=== PATIENT | female | born 1940 | race Caucasian/White ===

== ENCOUNTER → 2016-08-13 | Outpatient (CLI) | payer BC ==
[~2016-08-13] MED LIST: ABRI IV; AMIO200T7 PO; AMOXICILLIN PO; ANAS1TAB19 PO; ATOR10TA88 PO; CALC500C70 PO; CHOL20009 PO; FENO145T26 PO; HYDR-5688 PO; LNX125 PO; LPR25 PO; MAGN400T6 PO; METO50TA16 PO; MUCINEX PO; MULT-506 PO; POTA1TAB97 PO; RIVA1TAB4 PO; SOTA160T PO; TEMA15CA4 PO; TESSALON PERLES PO; TRIA37.5 PO; [UNRECOGNIZED DRUG - OTHER] PO
[2016-08-13 12:31] LABS: ZZInitiateTest Complete
[2016-08-13 12:32] LABS: ESTIMATED AVERAGE GLUCOSE 134 mg/dl; HA1C FLAG Normal (Normal)
[2016-08-13 12:36] LABS: MANUAL MICROSCOPIC REQUIRED? NO; REVIEW REQ? YES
== END | disposition home or self-care (01) ==
LOC: C.LABPVFM 08:03
PROVIDERS: ATTEND Family Medicine
DX: I10 Essential (primary) hypertension (principal); E78.5 Hyperlipidemia, unspecified; E11.9 Type 2 diabetes mellitus without complications; R20.8 Other disturbances of skin sensation; R30.0 Dysuria

== ENCOUNTER → 2016-08-22 | Outpatient (CLI) | payer BC | END | disposition home or self-care (01) | LOC: C.LABPVFM 08:20 | PROVIDERS: ATTEND Family Medicine | DX: I48.0 Paroxysmal atrial fibrillation (principal) ==

== ENCOUNTER → 2016-11-13 | Outpatient (CLI) | payer BC ==
[~2016-11-13] MED LIST changes: +ATOR10TA82 PO; -ATOR10TA88 PO
--- NOTE | 2016-11-13 16:09 | MAMMOGRAPHY REPORT ---
BILATERAL DIGITAL SCREENING MAMMOGRAM TOMOSYNTHESIS WITH CAD: 11/13/2016 CLINICAL HISTORY: Asymptomatic. Personal history of breast cancer. TECHNIQUE: Breast tomosynthesis in addition to standard 2D mammography was performed. Current study was also evaluated with a Computer Aided Detection (CAD) system. COMPARISON: Comparison is made to exams dated: 11/15/2015 mammogram, 10/03/2014 mammogram, 10/03/2014 ultrasound, 09/27/2014 mammogram, 09/20/2013 mammogram - [facility], and 06/30/2012 m ammogram. BREAST COMPOSITION: The tissue of both breasts is heterogeneously dense, which may obscure small ma sses. FINDINGS: No suspicious masses, calcifications, or areas of architectural distortion are noted in e ither breast. There has been no significant interval change compared to prior exams. Scattered bilat eral benign-appearing calcifications are not significantly changed. There are stable postsurgical c hanges in bilateral upper outer quadrants, with linear scar markers denoting scars on bilateral uppe r outer breasts. IMPRESSION: ACR BI-RADS CATEGORY 2: BENIGN There is no mammographic evidence of malignancy. A 1 year screening mammogram is recommended. The p atient will receive written notification of the results. Approximately 10% of breast cancers are not detected with mammography. A negative mammographic repor t should not delay biopsy if a clinically suggestive mass is present. Julee Cheatham M.D. /:11/13/2016 15:10:46 Test Engineering Technician: Tatiana MAURICIO(R)(M), [facility] letter sent: Normal 1/2 BI-RADS Code: ACR BI-RADS Category 2: Benign
== END | disposition home or self-care (01) ==
LOC: C.MAMM 14:03
PROVIDERS: ATTEND Surgery
DX: Z12.31 Encounter for screening mammogram for malignant neoplasm of breast (principal); Z85.3 Personal history of malignant neoplasm of breast

== ENCOUNTER → 2016-11-18 | Outpatient (CLI) | payer BC ==
--- NOTE | 2016-11-18 09:44 | DIAGNOSTIC IMAGING REPORT ---
PET/CT SKULL-THIGH CLINICAL HISTORY: BREAST CANCER new mediastinal lymphadenopathy. COMPARISON STUDY: No previous studies for comparison. FINDINGS: The patient was injected with 13.7 mCi of F 18 labeled FDG. Following the standard induction phase, PET/CT scanning is performed from the skull base the upper thigh region. Activity within neck is felt to be physiologic. Within the chest, there is an FDG avid right hilar lymph node which measures approximately 2 cm. This node has SUV maximum of 4.1. Also evident is a mildly FDG avid 15 mm right axillary lymph node with SUV maximum of 2.0. Paratracheal lymph nodes are the upper limits of normal in size but do not demonstrate significant FDG activity. There is no pathologic parenchymal activity. There is no pathologic venkat activity within the abdomen or pelvis. There is no pathologic adrenal gland activity. There is no pathologic hepatic activity. There is physiologic ureter tract and bowel activity. There are bilateral renal cysts, the largest of which measures 4 cm.. There is no pathologic skeletal activity. IMPRESSION: 1. FDG avid 2 cm right hilar lymph node with SUV maximum of 4.1. 2. Minimally FDG avid right axillary lymph node with SUV maximum of 2.0. Electronically signed by: Dayo Bolivar M.D. 11/18/2016 9:43 AM Dictated Date/Time: 11/18/2016 9:36 AM
== END | disposition home or self-care (01) ==
LOC: C.PET 07:24
PROVIDERS: ATTEND Internal Medicine Pulmonary Disease
DX: C50.919 Malignant neoplasm of unspecified site of unspecified female breast (principal)

== ENCOUNTER → 2016-12-20 | Outpatient (CLI) | payer BC ==
[~2016-12-20] MED LIST changes: -AMOXICILLIN PO; -ATOR10TA82 PO; -LNX125 PO; -LPR25 PO; -MUCINEX PO; -SOTA160T PO; -TEMA15CA4 PO; -TESSALON PERLES PO; -[UNRECOGNIZED DRUG - OTHER] PO
--- NOTE | 2016-12-21 06:12 | PAP/PSG TECHNICIAN REPORT ---
[facility] Automotive Service Director Polysomnogram Report Study name: None Report date: 12/21/2016 Study date: 12/20/2016 Referring Physician: CHAPINCITO ALVA DO, DO Name: KRYSTINA MAHAJAN Interpreting Physician: Chapincito Alva D.O. Date of : 1940 Automotive Service Director: OFE Rayo. Sex: Female Age: 76 StudyType: PSG Weight: 147 lbs Height: 76 years, Height 5' 6" Neck Circum:14.5inches BMI: 23.72 Medications: Fenofibrate 145mg, Magnesium Oxide 500mg, Calcium 600/Vit D 600-400, Multiple Vitamin, Potassium Chloride Nga ER 20 MEQ, Triamterene -HCTZ 37.5-25mg, Amiodarone HCl 200mg, Metoprolol Tartrate 50mg, Xarelto 20mg, Vit D3 Patient History Study started on room air with no ETCO2 monitoring in room #6. 76 yr old female here tonight for a diagnostic psg. She snores, has atrial fibrillation and insomnia. She wakes up about every two hours to use the restroom. Her neck circ=14.5inches. Parameters Monitored NPSG: E1-M2, E2-M1, Fp1-M2, Fp2-M1, F3-M2, F4-M2, F4-M1, C3-M2, C4-M2, C4-M1, O1-M2, O2-M2, O2-M1, T3-M2, T4-M1, P3-M2, P4-M1, CHIN1, CHIN2, HR, EKG, Legs, PFLOW, SNOR, FLOW, CFLOW, Tidal Volume, THOR, ABDO, SpO2, PLTH, CPRESS, ETCO2 Wave, ETCO2, pH Sleep Architecture Sleep Stages Time at Lights Off 10:08:14 PM STAGES Time (min.) TST (%) Time at Lights On 5:44:14 AM Wake 73.5 -- Total Recording Time (TRT) 455.50 min. N1 18.0 5 Total Sleep Period (TSP) 452.5 min. N2 268.0 70 Total Sleep Time (TST) 382.0min. N3 28.0 7 Awake Time 73.5 min. REM 68.0 18 Wake after Sleep Onset 70.5 min. Sleep Efficiency (SE) 84 % Sleep Onset Latency (GIRISH) 3.5 min. Number of Stage 1 Shifts None Awakenings 11 Stage Changes 77 Number of REM periods 7 REM 68.0 18 REM Latency 78.0 min. NREM 314.0 82 Body Position Analysis Supine Right Left Side Prone Vertical Total Sleep Time (min.) 41.5 204.5 156.0 360.50 0.0 0.0 Total Sleep Time (%) 6% 54% 41% 94 0% N/A% Total Sleep Time REM (min.) 0.0 54.0 14.0 None 0.0 0.0 Total Sleep Time NREM (min.) 21.5 150.5 142.0 None 0.0 0.0 Intermittent Wake (min.) 20.0 40.5 13.0 None 0.0 0.0 Total Sleep Period (%) 8% None None None None None Arousals Myoclonus (PLM) * Events Count Index Events Count Index Spontaneous 18 3 Events Awake (PLMW) 69 56.3 Respiratory 12 1.9 Events Asleep w/ Arousal (PLMA) 29 4.6 PLM 28 5 Events Asleep w/o Arousal (PLMS) 259 40.7 Snoring 5 1 Total Asleep 288 45.2 Total 63 10 Total 357 47 Respiratory Analysis * CA OA MA CH H RERA Total Count 3 0 0 0 9 4 12 Index 0.5 0.0 0.0 0 1.4 1 2.5 Mean Duration 15.1 0.0 0.0 0.00 22.7 18.4 20.2 Longest Duration 18.0 0.0 0.0 0.00 0.0 32.4 32.4 Respiratory Event Summary Total Supine ~Supine Right Left Prone REM NREM Apneas Count 3 2 1 0 1 N/A 0 3 Index 0.5 6 0 0.0 0.4 N/A 0 1 Hypopneas (4% Desat) Count 9 3 6 0 6 N/A 0 9 Index 1.4 8.4 1 0.0 2.3 N/A 0.0 1.7 Apneas & All Hypopneas Count 12 5 7 0 7 N/A 0 12 Index 1.9 14 1 0 3 N/A 0.0 2.3 Respiratory Events (Produce Department Supervisor+All Hyp+RERA) Count 12 6 10 0 10 N/A 0 12 Index 2.5 17 2 0.0 3.8 N/A 0.0 3.1 Respiratory Related Arousal Count 12 6 7 0 7 N/A 0 12 Index 1.9 14 1 0 3 N/A 0 2 Snoring Analysis Supine Right Left Prone REM NREM Total Snore duration 12.5 min Snores count 14 152 468 N/A 126 508 634 Snore mean duration 1.2 Sec Snores index 39 45 180 N/A 111.2 97.1 99.6 TST with snoring (%) 3.3% Desaturation Event Summary: Minimum %SpO2 Event Count Mean/Min/Max Duration(sec.) Desaturation Index % Time In Bed > 90 24 28.5 / 16.5 / 58.8 6.4 51.2 86 - 90 8 19.8 / 11.3 / 28.5 2.2 48.8 81 - 85 0 N/A 0.0 0.1 76 - 80 0 N/A 0.0 0.0 71 - 75 0 N/A 0.0 0.0 66 - 70 0 N/A 0.0 0.0 61 - 65 0 N/A 0.0 0.0 56 - 60 0 N/A 0.0 0.0 51 - 55 0 N/A 0.0 0.0 < 50 0 N/A 0.0 0.0 Total REM NREM Awake <50% 0.0 min. 0.0 min. 0.0 min. 0.0 min. 51 - 60% 0.0 min. 0.0 min. 0.0 min. 0.0 min. 61 - 70% 0.0 min. 0.0 min. 0.0 min. 0.0 min. 71 - 80% 0.0 min. 0.0 min. 0.0 min. 0.0 min. 81 - 90% 215.1 min. 28.6 min. 172.8 min. 13.6 min. 91 - 100% 225.4 min. 39.4 min. 141.2 min. 44.9 min. Average 90 91 90 92 Minimum SpO2 80 86 86 80 Desaturation Event Index 3.6 0.0 2.3 12.2 # Desat. Events below 89% 12 N/A 3 9 Time(%) with Saturation below 89% 12.7 2.3 9.4 0.9 Time(min.) with Saturation below 89% 56.0 10.2 41.6 4.1 Time (mins) REM (mins) NREM (mins) % of TST SpO2 Below 90% 10 N/A N10 28.4 SpO2 Below 88% 1 0 0 4 Heart Rate Analysis Min (bpm) Max (bpm) Average (bpm) Awake 64 87 69 NREM 63 77 66 REM 63 73 66 Overall 63 77 66 Supplemental O2 Values Minimum O2 level: None Value Start Time End Time Automotive Service Director Comments Mrs. Mahajan slept in the right and supine positions. No cardiac arrhythmia noted. PLM's were noted. No bruxism noted. Snoring was noted and scored as a 2 on a scale of 1 through 5. (0=no snoring, 5=snoring loud enough to be heard through a closed door or down the hayes way) She awoke to use the restroom 3 times during the night. She stated that she slept about the same as usual. The final report will be interpreted and signed by a sleep physician. The completed physician report will then be placed in the patient medical record. Therapy (cm H2O) 0 TIB (min.) 455.5 TST (min.) 382.0 Sleep Onset (min.) 3.5 REM Onset From Sleep (min.) 78.0 Sleep Efficiency % 84 Wakefulness (%) 16 Wakefulness (min.) 73.5 NREM 1 (%) 5 NREM 1 (min.) 18.0 NREM 2 (%) 70 NREM 2 (min.) 268.0 NREM 3 (%) 7 NREM 3 (min.) 28.0 REM (%) 18 REM (min.) 68.0 # Arousals 63 Arousal Index 10 # Snore 634 Snore Index 99.6 AHI 1.9 AHI Supine 14 AHI Non-Supine 1 NREM AHI 2.3 REM AHI 0.0 RDI 2.5 # Obstructive Apnea 0 # Central Apnea 3 # Mixed Apnea 0 # Hypopneas 9 RERAs 4 Total Respiratory Events 22 Time Below SpO2 89% (min.) 51.8 Mean NREM SpO2 (%) 90 Mean REM SpO2 (%) 91 Mean Sleep SpO2 (%) 90 Min NREM SpO2 (%) 86 Min REM SpO2 (%) 86 Position Supine (min.) 41.5 Position Non-supine (min.) 360.5 LM Index Sleep 45.2 LM Index NREM 51.8 LM Index REM 15.0 Mean Heart Rate (bpm) 66 Min Heart Rate (bpm) 63
--- NOTE | 2016-12-28 11:04 | POLYSOMNOGRAPH REPORT ---
REFERRING PHYSICIAN: Primary care physician is Dr. Ashley Jaquez. CLINICAL DATA: The patient is a 76-year-old female with a history of recurring atrial fibrillation. She also has snoring, insomnia, and excessive daytime somnolence. This study was an in-lab overnight polysomnography. SLEEP ARCHITECTURE: The total sleep period was 452.5 minutes. The total sleep time was 382 minutes. Sleep efficiency was mildly reduced at 84%. Sleep latency was normal at 3.5 minutes. Wake after sleep onset was 70.5 minutes. REM latency was normal at 78 minutes. Sleep consisted of stage N1 5%, stage N2 70%, stage N3 7%, and stage REM 18%. AROUSAL DATA: The patient had a total of 63 arousals including 18 spontaneous arousals, 12 respiratory arousals, 28 PLM arousals, and 5 snoring arousals. The arousal index was 10. PERIODIC LIMB MOVEMENTS DATA: The patient had a total of 288 periodic limb movements of sleep for a PLM index of 45.2. There were 29 events with arousals for a PLM arousal index of 4.6. EKG: The underlying cardiac rhythm was normal sinus. The cardiac rates ranged from 63-77 beats per minute. The average heart rate was 66 beats per minute. No arrhythmias were noted. RESPIRATORY DATA: The patient had a total of 12 respiratory events including 3 central apneas and 9 hypopneas. Hypopneas were scored according to the 4% desaturation rule. The apnea hypopnea index was 1.9, which would be within the limits of normal. This would suggest the patient does not have significant sleep apnea. OXIMETRY DATA: The average saturation was 90%. The minimum saturation was 80%. She had only 1 minute with saturations less than 88%. RIGHT OF WAY CLEARER'S COMMENTS: The patient slept in the right and supine positions. PLMs were noted. No bruxism noted. Snoring was noted and scored as a 2 on a scale of 1 through 5. IMPRESSION: 1. Periodic limb movement disorder. 2. No evidence of significant sleep apnea. 3. No cardiac arrhythmias seen during this study. COMMENTS: The patient had overall good sleep architecture. There was a slight decrease in sleepy efficiency. She had a moderate to severe number of periodic limb movements, but with relatively few arousals. Clinical correlation would need to be determined to see if she may have underlying restless legs. She had a small number of apneas and partial apneas but not enough to be definitively abnormal. Oxygenation was not significantly abnormal. RECOMMENDATIONS: 1. The patient should be advised of the appropriate principles of sleep hygiene including having a regular sleep-wake schedule and allowing approximately 8 hours of sleep time per night. 2. Clinical correlation is required to determine if she has restless legs syndrome. It seems unlikely that the limb movements during sleep are all major cause of her insomnia. 3. If possible the patient should avoid sleeping in the supine position as are typically has more respiratory events and snoring in the supine position.
== END | disposition home or self-care (01) ==
LOC: C.NEUR 21:00
PROVIDERS: ATTEND Internal Medicine Pulmonary Disease
DX: G47.33 Obstructive sleep apnea (adult) (pediatric) (principal); I48.0 Paroxysmal atrial fibrillation; G47.61 Periodic limb movement disorder

== ENCOUNTER → 2016-12-30 | Outpatient (CLI) | payer BC | END | disposition home or self-care (01) | LOC: C.LABPVFM 11:53 | PROVIDERS: ATTEND Family Medicine | DX: N39.0 Urinary tract infection, site not specified (principal) ==

== ENCOUNTER 2017-01-18 05:21 | Day surgery (SDC) | payer BC ==
[2017-01-14 14:15] VITALS: Ht 167.6 cm; Wt 66.8 kg
[~2017-01-18] VITALS: Ht 167.6 cm; Wt 66.8 kg
[~2017-01-18 05:21] MED LIST changes: -HYDR-5688 PO
[2017-01-18 05:51] VITALS: BP 126/80; PULSE 68; TEMP 36.9; O2SAT 98
[2017-01-18] MEDS ORDERED: CEFAZOLIN 2000 MG/60 ML D5W IV SCH (06:00)
[2017-01-18] MEDS ORDERED: LACTATED RINGER'S 1000ML 1,000 ML IV SCH (06:00)
[2017-01-18] MEDS ORDERED: THROMBIN FOR SOLN 20000 UNIT KIT ONE (06:30)
[2017-01-18] MEDS ORDERED: CEFAZOLIN SOD 1 GM VIAL ONE (06:30)
[2017-01-18] MEDS ORDERED: LIDOCAINE HCL 1% 20 ML VIAL ONE ×2 (06:30→07:36)
[2017-01-18] MEDS ORDERED: HEPARIN SOD (PORCINE) 1000 UNIT/ML 10 ML VIAL ONE (06:30)
[2017-01-18] MEDS ORDERED: FENTANYL CITRATE INJ 50 MCG/1 ML 2 ML VIAL ONE (06:49)
[2017-01-18] MEDS ORDERED: PROPOFOL IV EMULSION 10 MG/ML 20 ML VIAL IV ONE (06:49)
[2017-01-18] MEDS ORDERED: LIDOCAINE HCL 2% 2 ML VIAL (20MG/ML) ONE (06:49)
[2017-01-18] MEDS ORDERED: KETAMINE HCL INJ 50 MG/ML 10 ML VIAL ONE (06:49)
[2017-01-18] MEDS ORDERED: MIDAZOLAM HCL 1 MG/ML 2ML VIAL ONE (06:49)
--- NOTE | 2017-01-18 06:52 | History & Physical Bridge Note ---
H&P Re-Evaluation Bridge Note: I have examined the patient, reviewed the History & Physical and in the interval since the performance of the History & Physical I have noted the following changes of clinical significance: No changes noted
[2017-01-18] MEDS ORDERED: ONDANSETRON INJ 2 MG/ML 2 ML VIAL IV PRN ×2 (07:00→08:30)
[2017-01-18] MEDS ORDERED: HYDROmorphone INJ 1 MG/ML SYR IV PRN (07:00)
[2017-01-18] MEDS ORDERED: EpHEDrine SULFATE INJ 50 MG/ML AMP IV PRN (07:00)
[2017-01-18] MEDS ORDERED: FENTANYL CITRATE INJ 50 MCG/1 ML 2 ML VIAL IV PRN (07:00)
[2017-01-18] MEDS ORDERED: ATROPINE SULFATE 0.1 MG/ML 5ML SYR IV PRN (07:00)
--- NOTE | 2017-01-18 07:02 | [facility] Operative Report ---
Operative Report Operative Date Jan 18, 2017. Pre-Operative Diagnosis metastatic breast cancer Post-Operative Diagnosis same Procedure(s) Performed access port Surgeon Mcgraw Real Estate Coordinator Surgeon(s) nurses Findings port placement- cutdown Lt Internal jugular vein Anesthesia local/ sedation Complication(s) None Disposition Recovery Room / PACU Description of Procedure The patient was brought into the operating room and placed on the operating room table in the supine position. Her left neck was marked using an ultrasound device. Her left chest and neck were prepped and draped in usual fashion. Using 1% plain lidocaine the skin septations tissue over the left deltopectoral groove were anesthetized. Incision was made in this area can dissection down to the area of the cephalic vein. Was on a unable to identify any cephalic vein. I therefore placed the patient in Trendelenburg position and attempted left subclavian puncture. I was not I was unable to localize the left subclavian vein easily. The patient had had previous left shoulder surgery which I do believe changed her anatomy in some ways. At this point I attempted left internal jugular puncture I was unable to easily enter the left subclavian vein secondary to its small size. I therefore anesthetized the skin septations tissue and made transverse incision in the left lower neck. I then dissected the internal jugular from surrounding tissue. I placed a 4-0 Prolene pursestring suture. I then punctured the left jugular vein and passed an I wire under fluoroscopy. A dilator introducer then passed over the wire and the dilator and wire removed. Catheter was brought up through a tunnel from the chest to the neck. Half was then passed into the introducer the introducer removed. The catheter was positioned appropriately using fluoroscopy. Catheter secured place using 2-0 chromic catgut suture the 4-0 Prolene pursestring suture was secured. The catheter was easily aspirated and flushed with heparinized solution. A pocket was fashioned in the chest wall the port was attached to catheter the port placed into the pocket secured to the chest wall using 3-0 Prolene suture. The port had been aspirated and flushed with heparinized solution. At this point incisions were closed using 2-0 chromic and plain catgut suture for the subcutaneous tissue. 5-0 Prolene suture was used to not reapproximate the skin in the neck and 4-0 nylon in the chest. As transferred recovery room in stable condition. I attest to the content of the Intraoperative Record and any orders documented therein. Any exceptions are noted below.
--- NOTE | 2017-01-18 07:06 | Discharge Instructions ---
Discharge Instructions Date of Service Jan 18, 2017. Admission Reason for Admission: Breast Cancer Discharge Discharge Diagnosis / Problem: port placement Discharge Goals Goal(s): Decrease discomfort, Improve function, Improve disease control Activity Recommendations Activity Limitations: as noted below Lifting Limitations: no more than 25 pounds Exercise/Sports Limitations: until after follow-up appointment May Resume Sexual Activity: when tolerated Shower/Bathe: tomorrow Driving or Machine Use: resume 1 day after discharge SPECIAL CARE INSTRUCTIONS: * Cover incisions and change daily for comfort/drainage. * Expect some swelling and bruising. Call your doctor if: * Temperature above 101 degrees * Pain not relieved by pain medicine ordered * There is increased drainage or redness from any incision * You have any unanswered questions or concerns [phone]. FOLLOW UP VISIT: If not already scheduled, please call the office for a follow-up visit. for 2 weeks- suture removal OFFICE PHONE NUMBER: Dr. Mcgraw Office . Current Hospital Diet Patient's current hospital diet: Discharge Diet Recommended Diet: Regular Diet Pending Studies Studies pending at discharge: no Medical Emergencies . Who to Call and When: Medical Emergencies: If at any time you feel your situation is an emergency, please call 911 immediately. . Non-Emergent Contact Non-Emergency issues call your: Primary Care Provider, Surgeon . "Provider Documentation" section prepared by Jet Mcgraw. . VTE Core Measure Inpt VTE Proph given/why not?: SCD's
[2017-01-18] MEDS ORDERED: HYDR-5688 PO (07:07)
[2017-01-18] MEDS ORDERED: ACETAMINOPHEN 325 MG TAB PO PRN (08:30)
--- NOTE | 2017-01-18 08:40 | Anesthesiology Progress Note ---
Anesthesia Post Op Note Date & Time Jan 18, 2017 at 08:39 Vital Signs Pain Intensity: 0 Vital Signs Past 12 Hours Date Time Temp Pulse Resp B/P (MAP) Pulse Ox O2 Delivery O2 Flow Rate FiO2 01/18/17 08:24 36.6 65 18 122/65 96 Room Air 01/18/17 05:51 36.9 68 18 126/80 (95) 98 Room Air Notes Mental Status: alert / awake / arousable, participated in evaluation Pt Amnestic to Procedure: Yes Nausea / Vomiting: adequately controlled Pain: adequately controlled Airway Patency, RR, SpO2: stable & adequate BP & HR: stable & adequate Hydration State: stable & adequate Anesthetic Complications: no major complications apparent
--- NOTE | 2017-01-18 08:45 | DIAGNOSTIC IMAGING REPORT ---
CHEST ONE VIEW PORTABLE CLINICAL HISTORY: A-Port catheter insertion COMPARISON STUDY: December 18, 2016 FINDINGS: The cardiac and mediastinal contours remain stable. There has been interval insertion of a left-sided A-Port catheter. The tip projects over the superior vena cava. There is no pneumothorax. There is no focal pulmonary consolidation. There is mild elevation/eventration of the right hemidiaphragm. There is no failure. There are no pleural effusions. Postsurgical changes involve the proximal left humerus. IMPRESSION: No evidence of pneumothorax status post placement of a left-sided A-Port catheter. The tip projects over the superior vena cava Electronically signed by: Dayo Bolivar M.D. 01/18/2017 8:44 AM Dictated Date/Time: 01/18/2017 8:41 AM
[2017-01-18 09:07] VITALS: BP 120/62; PULSE 63; TEMP 36.6; O2SAT 94
[2017-01-18 09:25] VITALS: BP 116/61; PULSE 67; O2SAT 96
[2017-02-09] MEDS ORDERED: HYDR-5688 PO (12:03)
== END 2017-01-18 09:55 | disposition home or self-care (01) ==
LOC: C.ACU 05:21
PROVIDERS: ATTEND Surgery
DX: C50.919 Malignant neoplasm of unspecified site of unspecified female breast (principal); Z17.0 Estrogen receptor positive status [ER+]; I48.0 Paroxysmal atrial fibrillation; Z79.01 Long term (current) use of anticoagulants; E11.42 Type 2 diabetes mellitus with diabetic polyneuropathy; I10 Essential (primary) hypertension; E78.5 Hyperlipidemia, unspecified; E87.6 Hypokalemia; E61.8 Deficiency of other specified nutrient elements; E55.9 Vitamin D deficiency, unspecified; G47.33 Obstructive sleep apnea (adult) (pediatric); M85.80 Other specified disorders of bone density and structure, unspecified site; M19.041 Primary osteoarthritis, right hand; M19.042 Primary osteoarthritis, left hand; Z87.891 Personal history of nicotine dependence; Z79.899 Other long term (current) drug therapy

== ENCOUNTER 2017-02-07 05:28 | Emergency (ER) | payer BC ==
[~2017-02-07] VITALS: Ht 167.6 cm; Wt 68.4 kg
[~2017-02-07 05:28] MED LIST changes: +HYDR-5688 PO
[2017-02-07 05:30] VITALS: TEMP 36.7; Ht 167.6 cm; Wt 68.4 kg
--- NOTE | 2017-02-07 06:08 | EMERGENCY ROOM VISIT NOTE ---
History First contact with patient: 05:34 Chief Complaint: OTHER COMPLAINT Stated Complaint: CHEMO PORT SWELLING POSS/ WITH BLOOD History of Present Illness The patient is a 76 year old female who presents to the Emergency Room for evaluation of left upper chest swelling. Patient with left upper mediport placement 1 month ago. No issues thus far with it and had chemo 10 days ago through it without issue. She notes she awoke this morning with swelling over port which has increased in size. Applied Ice without improvement. Nothing makes better. Getting bigger with time. Minimal pain associated with this. No trauma/injury. Denies shob, neck pain, syncope nor other swelling/bruising. Is on Xarelto. Patient being treated for breast ca with lymph node involvement. Mediport enters left IJ. Notes previous surgery to right upper arm for humerus fracture. On Xarelto for history of Afib. Review of Systems See HPI for pertinent positives & negatives. A total of 6 systems reviewed and were otherwise negative. Past Medical/Surgical History Medical Problems: (1) Chest pain (2) Paroxysmal a-fib (3) Rapid atrial fibrillation (4) Type 2 diabetes mellitus Family History FH: cancer FH: diabetes mellitus FH: heart disease FH: hypertension FH: kidney disease Social History Smoking Status: Former Smoker Drug Use: none Marital Status: Housing Status: lives with significant other Occupation Status: unemployed Current/Historical Medications Scheduled Amiodarone Hcl (Pacerone), 200 MG PO QAM Anastrozole (Arimidex), 1 MG PO QPM Calcium/Vitamin D (Os-Lino 500 Plus D), 1 TAB PO BID Cholecalciferol (Vitamin D), 2,000 INTER.UNIT PO QAM Fenofibrate (Tricor ), 145 MG PO QPM Magnesium Oxide (Mag-Ox), 500 MG PO QPM Metoprolol Tartrate (Lopressor) (Lopressor), 50 MG PO QPM Multivitamin (Multivitamin), 1 TAB PO QAM Paclitaxel Protein-Bound (Abraxane), 1 DOSE IV WEEKLY Potassium Chloride (K-Tab), 20 MEQ PO TID Rivaroxaban (Xarelto), 20 MG PO QPM Triamterene/Hctz (Dyazide 37.5MG/25MG), 1 CAP PO QAM Physical Exam Vital Signs Date Time Temp Pulse Resp B/P (MAP) Pulse Ox O2 Delivery O2 Flow Rate FiO2 02/07/17 06:39 80 18 95/55 96 Room Air 02/07/17 05:30 36.7 91 18 148/76 97 Room Air Physical Exam GENERAL: Patient is anxious appearing and in mild distress. HEENT: No acute trauma, normocephalic atraumatic, mucous membranes moist, no nasal congestion, no scleral icterus. NECK: No stridor, no adenopathy, no meningismus, trachea is midline. Chest: Large area swelling, non-fluctuant, without bruising left upper chest surrounding mediport. Does not cross above clavicle nor on to neck. Extend from left upper chest to several cm left of sternum and down on to upper left breast. Non-tender without crepitus. Surgical sites healing well. LUNGS: No dyspnea. Clear to auscultation and equal bilaterally. No wheeze, no rhonchi. HEART: Regular rate and rhythm. No murmurs, rubs, gallops appreciated. EXTREMITIES: Normal motion all extremities, no cyanosis, no edema. NEUROLOGIC: Alert and oriented, no acute motor or sensory deficits, no focal weakness, cranial nerves grossly intact. SKIN: No rash, no jaundice, no diaphoresis. Medical Decision & Procedures Laboratory Results 02/07/17 06:00 Red Blood Count 4.36, Mean Corpuscular Volume 86.5, Mean Corpuscular Hemoglobin 28.9, Mean Corpuscular Hemoglobin Concent 33.4, Mean Platelet Volume 9.1, Neutrophils (%) (Auto) 40.3, Lymphocytes (%) (Auto) 37.6, Monocytes (%) (Auto) 18.1, Eosinophils (%) (Auto) 2.3, Basophils (%) (Auto) 0.7, Neutrophils # (Auto ) 1.20, Lymphocytes # (Auto) 1.12, Monocytes # (Auto) 0.54, Eosinophils # (Auto ) 0.07, Basophils # (Auto) 0.02 02/07/17 06:00 Test 02/07/17 06:00 White Blood Count 2.98 K/uL (4.8-10.8) Red Blood Count 4.36 M/uL (4.2-5.4) Hemoglobin 12.6 g/dL (12.0-16.0) Hematocrit 37.7 % (37-47) Mean Corpuscular Volume 86.5 fL (80-100) Mean Corpuscular Hemoglobin 28.9 pg (25-34) Mean Corpuscular Hemoglobin Concent 33.4 g/dl (32-36) Platelet Count 261 K/uL (130-400) Mean Platelet Volume 9.1 fL (7.4-10.4) Neutrophils (%) (Auto) 40.3 % Lymphocytes (%) (Auto) 37.6 % Monocytes (%) (Auto) 18.1 % Eosinophils (%) (Auto) 2.3 % Basophils (%) (Auto) 0.7 % Neutrophils # (Auto) 1.20 K/uL (1.4-6.5) Lymphocytes # (Auto) 1.12 K/uL (1.2-3.4) Monocytes # (Auto) 0.54 K/uL (0.11-0.59) Eosinophils # (Auto) 0.07 K/uL (0-0.5) Basophils # (Auto) 0.02 K/uL (0-0.2) RDW Standard Deviation 49.6 fL (36.4-46.3) RDW Coefficient of Variation 16.0 % (11.5-14.5) Immature Granulocyte % (Auto) 1.0 % Immature Granulocyte # (Auto) 0.03 K/uL (0.00-0.02) Prothrombin Time 12.7 SECONDS (9.0-12.0) Prothromb Time International Ratio 1.2 (0.9-1.1) Activated Partial Thromboplast Time 28.0 SECONDS (21.0-31.0) Partial Thromboplastin Ratio 1.1 Anion Gap 6.0 mmol/L (3-11) Est Creatinine Clear Calc Drug Dose 40.7 ml/min Estimated GFR () 56.5 Estimated GFR (Non- 48.7 BUN/Creatinine Ratio 22.0 (10-20) Calcium Level 8.5 mg/dl (8.5-10.1) Medical Decision Differential: Venous bleeding, Arterial Bleeding, Hematoma, Abscess, amongst other possibilities. 76 yr old female with large hematoma to left upper chest at site of mediport placement. Hematoma started this morning. Not above clavicle nor respiratory involvement. Pulses left arm intact. Stable and feeling well. Placed jose wrap over this. HgB stable. Vitals OK. Patients other labs look good. Discuss with Dr Swain who advises hold Xarelto, outpatient follow up with Surg. No evidence this is infection though I reviewed symptoms requiring return. Reviewed if significant more swelling need to return for further evaluation. Impression Primary Impression: Hematoma of left chest wall Departure Information Dispostion Home / Self-Care Condition GOOD Referrals Ashley Jaquez M.D. (PCP) Patient Instructions My [facility] Additional Instructions Hold you Xarelto for the next few days. Follow up with your Surgeon in the next few days and discuss when you should restart Xarelto. Keep left arm elevated as possible. Keep pressure to hematoma. Return if signs of infection develop such as fever, redness, pain, etc. Discuss with your water resources project manager if you should still be on xarelto.
[2017-02-07 06:10] LABS: BASO % 0.7 %; BASO ABS # 0.02 K/uL (0-0.2); COMPLETE YES; EOS % 2.3 %; HEMATOCRIT 37.7 % (37-47); LYMPH % 37.6 %; LYMPH ABS # 1.12 K/uL (1.2-3.4); MEAN CELL VOLUME 86.5 fL (80-100); MEAN CORPUSCULAR HEMOGLOBIN 28.9 pg (25-34); MEAN CORPUSCULAR HGB CONC 33.4 g/dl (32-36); MEAN PLATELET VOLUME 9.1 fL (7.4-10.4); MONO % 18.1 %; NEUT % 40.3 %; PLATELET COUNT 261 K/uL (130-400); RED BLOOD COUNT 4.36 M/uL (4.2-5.4); WHITE BLOOD COUNT 2.98 K/uL (4.8-10.8)
[2017-02-07 06:22] LABS: INR 1.2 (0.9-1.1); PARTIAL THROMBOPLASTIN RATIO 1.1; PROTHROMBIN TIME (PATIENT) 12.7 SECONDS (9.0-12.0)
[2017-02-07 06:27] LABS: CALCIUM 8.5 mg/dl (8.5-10.1); CREATININE 1.1 mg/dl (0.60-1.20)
[2017-02-07 06:39] VITALS: BP 95/55; PULSE 80; O2SAT 96
--- NOTE | 2017-02-07 08:22 | DIAGNOSTIC IMAGING REPORT ---
CHEST ONE VIEW PORTABLE CLINICAL HISTORY: Left upper chest hematoma. Evaluate left A-Port catheter. COMPARISON STUDY: 01/18/2017 FINDINGS: There has been no change in the position of the left-sided A-Port catheter. The tip projects just superior to the atriocaval junction. The heart is normal in size. There is no failure. There is no focal pulmonary consolidation. There are no pleural effusions. There is minimal left basilar atelectasis. There is no pneumothorax.[ Postsurgical changes involve the proximal left humerus. There is stable elevation/eventration of the right hemidiaphragm IMPRESSION: No active disease in the chest. Electronically signed by: Dayo Bolivar M.D. 02/07/2017 8:21 AM Dictated Date/Time: 02/07/2017 8:20 AM
== END 2017-02-07 07:04 | disposition home or self-care (01) ==
LOC: C.EDB 05:29
DX: T82.7XXA Infection and inflammatory reaction due to other cardiac and vascular devices, implants and grafts, initial encounter (principal); Y83.1 Surgical operation with implant of artificial internal device as the cause of abnormal reaction of the patient, or of later complication, without mention of misadventure at the time of the procedure; C50.919 Malignant neoplasm of unspecified site of unspecified female breast; I48.0 Paroxysmal atrial fibrillation; Z79.01 Long term (current) use of anticoagulants; E11.9 Type 2 diabetes mellitus without complications; Z80.9 Family history of malignant neoplasm, unspecified; Z83.3 Family history of diabetes mellitus; Z82.49 Family history of ischemic heart disease and other diseases of the circulatory system; Z84.1 Family history of disorders of kidney and ureter; Z87.891 Personal history of nicotine dependence; Z79.899 Other long term (current) drug therapy

== ENCOUNTER 2017-02-09 00:52 | Emergency (ER) | payer BC ==
[~2017-02-09] VITALS: Ht 167.6 cm; Wt 69.7 kg
[2017-02-09 00:59] VITALS: Ht 167.6 cm; Wt 69.7 kg
[2017-02-09 02:28] LABS: BASO % 1.5 %; BASO ABS # 0.06 K/uL (0-0.2); COMPLETE YES; HEMATOCRIT 30.6 % (37-47); IG% 0.7 %; LYMPH % 29.1 %; MEAN CELL VOLUME 86.4 fL (80-100); MEAN CORPUSCULAR HEMOGLOBIN 28.8 pg (25-34); MEAN CORPUSCULAR HGB CONC 33.3 g/dl (32-36); MEAN PLATELET VOLUME 9.4 fL (7.4-10.4); MONO % 14.6 %; NEUT % 53.1 %; PLATELET COUNT 216 K/uL (130-400); RED BLOOD COUNT 3.54 M/uL (4.2-5.4); WHITE BLOOD COUNT 4.12 K/uL (4.8-10.8)
[2017-02-09 02:44] LABS: BUN/CREATININE RATIO 20.9 (10-20); CALCIUM 8.6 mg/dl (8.5-10.1); CREATININE 0.91 mg/dl (0.60-1.20); POTASSIUM 3.8 mmol/L (3.5-5.1)
[2017-02-09 02:47] LABS: ALB/GLOB RATIO 1.3 (0.9-2)
[2017-02-09 06:51] LABS: PARTIAL THROMBOPLASTIN RATIO 0.9; PROTHROMBIN TIME (PATIENT) 10.6 SECONDS (9.0-12.0)
--- NOTE | 2017-02-09 07:06 | EMERGENCY ROOM VISIT NOTE ---
ED Visit Note First contact with patient: 01:35 I saw this patient in conjunction with Marlon Yarbrough PA-C. I agree with his decision-making and treatment plan.
--- NOTE | 2017-02-09 07:11 | DIAGNOSTIC IMAGING REPORT ---
LEFT UPPER EXTREMITY ULTRASOUND CLINICAL HISTORY: Left upper arm bruising near A-port. COMPARISON STUDY: Chest radiograph January 18, 2017 and PET/CT November 18, 2016. FINDINGS: Note is made of a complex hypoechoic fluid collection without color flow within the left chest wall lateral to the left internal jugular [id number]. The collection has 2 components, one component within the superficial soft tissues and one within the deeper soft tissues. These 2 components appear to communicate. In total, the collection measures 8.8 x 4.8 cm in size. No additional fluid collections are identified. The left internal jugular vein is patent. IMPRESSION: Complex left chest wall/upper extremity fluid collection located lateral to the internal jugular [id number]. The collection has two components which communicate, one component within the superficial soft tissues and one within the deeper soft tissues. In total, collection measures 8.8 x 4.8 cm. The appearance suggests a hematoma. Electronically signed by: Diaz Call M.D. 02/09/2017 7:10 AM Dictated Date/Time: 02/09/2017 7:05 AM
--- NOTE | 2017-02-09 07:12 | EMERGENCY ROOM VISIT NOTE ---
History First contact with patient: 01:35 Chief Complaint: BLEEDING Stated Complaint: BLEEDING INTERNALL AT SITE OF PORT Nursing Triage Summary: Pt reports she had an Aport placed on January [address] Mcgraw. Pt reported she was here Wednesday for bruising and swelling to site. Pt followed up with Dr Mcgraw's office but now tonight the swelling and bruising is worse. History of Present Illness The patient is a 76 year old female who presents to the Emergency Room with complaints of worsening bruising and swelling of her left shoulder and left arm. The patient has a history of breast cancer and had been a port placed roughly 3 weeks ago. She had been on Xarelto up until 2 days ago when she came into the emergency department for this complaint. At her initial visit blood work and chest x-ray were performed, and were without significant findings. Her Xarelto was discontinued temporarily. We were able to assist in having the patient follow-up with her surgeons office (Dr Mcgraw), which she was able to do yesterday. The patient had repeat blood work yesterday morning and no further intervention was recommended at that time. The patient evidently had a drop in hemoglobin from 12.6 to 10.8 in less than 24 hours. She did hermes her bruising at home with a surgical marker, and she states that over the past 6 hours the bruising has expanded beyond her demarcated lines. The patient is also complaining of more swelling superior and laterally to her port. She does not have chest pain, chest tightness, or shortness of breath. She is concerned about the increased size of the swelling. She rates her overall discomfort a 5/ 10. Review of Systems More than 10 systems were reviewed and otherwise negative with the exception of history of present illness. Past Medical/Surgical History Medical Problems: (1) Chest pain (2) Paroxysmal a-fib (3) Rapid atrial fibrillation (4) Type 2 diabetes mellitus Family History FH: cancer FH: diabetes mellitus FH: heart disease FH: hypertension FH: kidney disease Social History Smoking Status: Former Smoker Drug Use: none Marital Status: Housing Status: lives with significant other Occupation Status: unemployed Current/Historical Medications Scheduled Amiodarone Hcl (Pacerone), 200 MG PO QAM Anastrozole (Arimidex), 1 MG PO QPM Calcium/Vitamin D (Os-Lino 500 Plus D), 1 TAB PO BID Cholecalciferol (Vitamin D), 2,000 INTER.UNIT PO QAM Fenofibrate (Tricor ), 145 MG PO QPM Magnesium Oxide (Mag-Ox), 500 MG PO QPM Metoprolol Tartrate (Lopressor) (Lopressor), 50 MG PO QPM Multivitamin (Multivitamin), 1 TAB PO QAM Paclitaxel Protein-Bound (Abraxane), 1 DOSE IV WEEKLY Potassium Chloride (K-Tab), 20 MEQ PO TID Rivaroxaban (Xarelto), 20 MG PO QPM Triamterene/Hctz (Dyazide 37.5MG/25MG), 1 CAP PO QAM Physical Exam Vital Signs Date Time Temp Pulse Resp B/P (MAP) Pulse Ox O2 Delivery O2 Flow Rate FiO2 02/09/17 06:43 78 16 115/61 98 Room Air 02/09/17 05:25 80 16 108/54 97 Room Air 02/09/17 03:27 80 16 109/64 97 Room Air 02/09/17 00:59 36.8 103 16 114/60 95 Room Air Physical Exam VITALS: Vitals are noted on the nurse's note and reviewed by myself. Vital signs stable. GENERAL: Well-developed, well-nourished, white female, who is mildly anxious but cooperative with the examination NECK: Supple without nuchal rigidity. No lymphadenopathy. No thyromegaly. HEART: Regular rate and rhythm without murmurs gallops or rubs. LUNGS: Clear to auscultation bilaterally without wheezes, rales or rhonchi. No retractions or accessory muscle use. NEURO: Patient was alert and oriented to person place and time. CN II through XII grossly intact. SKIN: The skin was with extensive ecchymosis throughout the left upper chest wall down the left flank and into the medial aspect of the left upper extremity. This is primarily superior and lateral to the A-port. There does not appear to be obvious erythema or evidence of infection. No appreciable abscess. There is mild tenderness throughout, however no distinct point tenderness. There are no pulsatile masses appreciated. Medical Decision & Procedures ER Provider Diagnostic Interpretation: Preliminary Findings Only See Final Report For Complete Findings US EXTREMITY: INDICATION: Left upper arm bruising near port FINDINGS: Complex fluid collection lateral to the port spanning from the superficial tissues of the left anterior shoulder to the deeper tissues in the left lateral chest. This fluid collection measures 8.8 x 4.8 cm and likely represents a hematoma. Left internal jugular vein is patent. Laboratory Results 02/09/17 01:58 Red Blood Count 3.54, Mean Corpuscular Volume 86.4, Mean Corpuscular Hemoglobin 28.8, Mean Corpuscular Hemoglobin Concent 33.3, Mean Platelet Volume 9.4, Neutrophils (%) (Auto) 53.1, Lymphocytes (%) (Auto) 29.1, Monocytes (%) (Auto) 14.6, Eosinophils (%) (Auto) 1.0, Basophils (%) (Auto) 1.5, Neutrophils # (Auto ) 2.19, Lymphocytes # (Auto) 1.20, Monocytes # (Auto) 0.60, Eosinophils # (Auto ) 0.04, Basophils # (Auto) 0.06 02/09/17 01:58 Test 02/09/17 01:58 White Blood Count 4.12 K/uL (4.8-10.8) Red Blood Count 3.54 M/uL (4.2-5.4) Hemoglobin 10.2 g/dL (12.0-16.0) Hematocrit 30.6 % (37-47) Mean Corpuscular Volume 86.4 fL (80-100) Mean Corpuscular Hemoglobin 28.8 pg (25-34) Mean Corpuscular Hemoglobin Concent 33.3 g/dl (32-36) Platelet Count 216 K/uL (130-400) Mean Platelet Volume 9.4 fL (7.4-10.4) Neutrophils (%) (Auto) 53.1 % Lymphocytes (%) (Auto) 29.1 % Monocytes (%) (Auto) 14.6 % Eosinophils (%) (Auto) 1.0 % Basophils (%) (Auto) 1.5 % Neutrophils # (Auto) 2.19 K/uL (1.4-6.5) Lymphocytes # (Auto) 1.20 K/uL (1.2-3.4) Monocytes # (Auto) 0.60 K/uL (0.11-0.59) Eosinophils # (Auto) 0.04 K/uL (0-0.5) Basophils # (Auto) 0.06 K/uL (0-0.2) RDW Standard Deviation 50.5 fL (36.4-46.3) RDW Coefficient of Variation 16.0 % (11.5-14.5) Immature Granulocyte % (Auto) 0.7 % Immature Granulocyte # (Auto) 0.03 K/uL (0.00-0.02) Prothrombin Time 10.6 SECONDS (9.0-12.0) Prothromb Time International Ratio 1.0 (0.9-1.1) Activated Partial Thromboplast Time 23.0 SECONDS (21.0-31.0) Partial Thromboplastin Ratio 0.9 Anion Gap 6.0 mmol/L (3-11) Est Creatinine Clear Calc Drug Dose 49.2 ml/min Estimated GFR () 71.0 Estimated GFR (Non- 61.3 BUN/Creatinine Ratio 20.9 (10-20) Calcium Level 8.6 mg/dl (8.5-10.1) Total Bilirubin 0.5 mg/dl (0.2-1) Aspartate Amino Transf (AST/SGOT) 16 U/L (15-37) Alanine Aminotransferase (ALT/SGPT) 25 U/L (12-78) Alkaline Phosphatase 44 U/L (45-117) Total Protein 6.2 gm/dl (6.4-8.2) Albumin 3.5 gm/dl (3.4-5.0) Globulin 2.7 gm/dl (2.5-4.0) Albumin/Globulin Ratio 1.3 (0.9-2) ED Course Physical exam and history were performed. Nursing notes, EMR, and Medication List were personally reviewed. Patient appears to have a worsening and expanding left upper chest wall hematoma after a port placement several weeks ago. Patient was able to have chemotherapy treatment through this about 10 days ago without obvious compensation. The patient does not appear toxic on examination, however her symptoms have progressed since a few days ago. She also had blood work the past 48 hours where she has had a drop in her hemoglobin. IV access was established and labs were obtained. Ultrasound was ultimately ordered as well. The patient's blood work is as above and was reviewed. She does not have a significantly elevated white blood cell count. Her hemoglobin is now down to 10.2, which is a 2.4 g drop in the past 48 hours. She is likely bleeding around her port as her ultrasound shows a large hematoma. I discussed the case with my attending physician, Dr. Payne, who also independently evaluated the patient. The case was then discussed with the on- call surgeon, Dr. Marinelli, who evaluated the patient here in the department. Dr. Marinelli felt the patient's symptoms were concerning for an expanding hematoma with worsening anemia. He will be making arrangements to take the patient to the operating room suite for further management. Please see Dr. Marinelli's dictation for specifics of this disposition and plan. The chart was completed utilizing [employer] Speech Voice Recognition Software. Grammatical errors, random word insertions, pronoun errors, and incomplete sentences are an occasional consequence of this system due to software limitations, ambient noise, and hardware issues. Any formal questions or concerns about the content, text, or information contained within the body of this dictation should be directly addressed to the provider for clarification. . Medical Decision Differential diagnosis: Etiologies such as hematoma, cellulitis, abscess, MRSA infection, DVT, necrotizing fasciitis, dermatitis, drug eruption, as well as others were entertained.. Medication Reconcilliation Current Medication List: was personally reviewed by id Blood Pressure Screening Patient's blood pressure: Normal blood pressure Impression Primary Impression: Hematoma of left chest wall Departure Information Dispostion Being Evaluated By Surgeon Referrals Ashley Jaquez M.D. (PCP) Patient Instructions My [facility]
[2017-02-09] MEDS ORDERED: LACTATED RINGER'S 1000ML 1,000 ML IV SCH ×2 (09:00→12:02)
--- NOTE | 2017-02-09 09:08 | History and Physical ---
History & Physical Date & Time of Service: Feb 09, 2017 at 08:53 Chief Complaint: Bleeding Internall At Site Of Port Primary Care Physician: Ashley Jaquez M.D. History of Present Illness 76 y/o female 3 weeks s/p A-port placement (left IJ cutdown) on 01/[address] Mcgraw for breast cancer and chemotherapy. Her Xarelto was held 2 days after (h/o A-fib ). She had two chemo treatments since the port was placed. She has had increasing ecchymosis for the past week, and overnight increasing hematoma since being seen in the office yesterday. Xarelto has been held since Wednesday. Past Medical/Surgical History Medical Problems: (1) Chest pain (2) Paroxysmal a-fib (3) Rapid atrial fibrillation (4) Type 2 diabetes mellitus (5) Breast cancer Surgical 1. bilateral lumpectomies 2. hysterectomy 3. left shoulder ORIF 4. T&A 5. A-port 6. ablation for a-fib 09/04 Family History FH: cancer FH: diabetes mellitus FH: heart disease FH: hypertension FH: kidney disease Social History Smoking Status: Former Smoker Drug Use: none Marital Status: Occupational Status: unemployed Allergies Coded Allergies: Celecoxib (Verified Allergy, Intermediate, bruises, 01/18/17) Diltiazem (Verified Allergy, Intermediate, hives rash, 01/18/17) Pt states Cardizem IV allergy Naproxen (Verified Allergy, Intermediate, hives, rash, 01/18/17) Statins (Unverified Allergy, Unknown, SEVERE MUSCLE WEAKNESS, 01/18/17) Adhesives (Verified Adverse Reaction, Intermediate, SKIN TEARS, 02/07/17) Home Medications Scheduled Amiodarone Hcl (Pacerone), 200 MG PO QAM Anastrozole (Arimidex), 1 MG PO QPM Calcium/Vitamin D (Os-Lino 500 Plus D), 1 TAB PO BID Cholecalciferol (Vitamin D), 2,000 INTER.UNIT PO QAM Fenofibrate (Tricor ), 145 MG PO QPM Magnesium Oxide (Mag-Ox), 500 MG PO QPM Metoprolol Tartrate (Lopressor) (Lopressor), 50 MG PO QPM Multivitamin (Multivitamin), 1 TAB PO QAM Paclitaxel Protein-Bound (Abraxane), 1 DOSE IV WEEKLY Potassium Chloride (K-Tab), 20 MEQ PO TID Rivaroxaban (Xarelto), 20 MG PO QPM Triamterene/Hctz (Dyazide 37.5MG/25MG), 1 CAP PO QAM Review of Systems Cardiovascular: No chest pain, No edema Hematologic / Lymphatic: No abnormal bleeding/bruising Physical Exam Vital Signs Date Time Temp Pulse Resp B/P (MAP) Pulse Ox O2 Delivery O2 Flow Rate FiO2 02/09/17 08:51 81 18 91/48 96 Room Air 02/09/17 06:43 78 16 115/61 98 Room Air 02/09/17 05:25 80 16 108/54 97 Room Air 02/09/17 03:27 80 16 109/64 97 Room Air 02/09/17 00:59 36.8 103 16 114/60 95 Room Air General Appearance: WD/WN, no apparent distress Respiratory/Chest: lungs clear, + pertinent finding (ecchymosis of left breast , lateral chest, and upper arm, raised hematoma in shoulder just above the port) Cardiovascular: regular rate, rhythm Abdomen/GI: non tender, soft Diagnostics Laboratory Results Results Past 24 Hours Test 02/09/17 01:58 Range/Units White Blood Count 4.12 4.8-10.8 K/uL Red Blood Count 3.54 4.2-5.4 M/uL Hemoglobin 10.2 12.0-16.0 g/dL Hematocrit 30.6 37-47 % Mean Corpuscular Volume 86.4 80-100 fL Mean Corpuscular Hemoglobin 28.8 25-34 pg Mean Corpuscular Hemoglobin Concent 33.3 32-36 g/dl Platelet Count 216 130-400 K/uL Mean Platelet Volume 9.4 7.4-10.4 fL Neutrophils (%) (Auto) 53.1 % Lymphocytes (%) (Auto) 29.1 % Monocytes (%) (Auto) 14.6 % Eosinophils (%) (Auto) 1.0 % Basophils (%) (Auto) 1.5 % Neutrophils # (Auto) 2.19 1.4-6.5 K/uL Lymphocytes # (Auto) 1.20 1.2-3.4 K/uL Monocytes # (Auto) 0.60 0.11-0.59 K/uL Eosinophils # (Auto) 0.04 0-0.5 K/uL Basophils # (Auto) 0.06 0-0.2 K/uL RDW Standard Deviation 50.5 36.4-46.3 fL RDW Coefficient of Variation 16.0 11.5-14.5 % Immature Granulocyte % (Auto) 0.7 % Immature Granulocyte # (Auto) 0.03 0.00-0.02 K/uL Prothrombin Time 10.6 9.0-12.0 SECONDS Prothromb Time International Ratio 1.0 0.9-1.1 Activated Partial Thromboplast Time 23.0 21.0-31.0 SECONDS Partial Thromboplastin Ratio 0.9 Sodium Level 143 136-145 mmol/L Potassium Level 3.8 3.5-5.1 mmol/L Chloride Level 113 98-107 mmol/L Carbon Dioxide Level 24 21-32 mmol/L Anion Gap 6.0 3-11 mmol/L Blood Urea Nitrogen 19 7-18 mg/dl Creatinine 0.91 0.60-1.20 mg/dl Est Creatinine Clear Calc Drug Dose 49.2 ml/min Estimated GFR () 71.0 Estimated GFR (Non- 61.3 BUN/Creatinine Ratio 20.9 10-20 Random Glucose 131 70-99 mg/dl Calcium Level 8.6 8.5-10.1 mg/dl Total Bilirubin 0.5 0.2-1 mg/dl Aspartate Amino Transf (AST/SGOT) 16 15-37 U/L Alanine Aminotransferase (ALT/SGPT) 25 12-78 U/L Alkaline Phosphatase 44 45-117 U/L Total Protein 6.2 6.4-8.2 gm/dl Albumin 3.5 3.4-5.0 gm/dl Globulin 2.7 2.5-4.0 gm/dl Albumin/Globulin Ratio 1.3 0.9-2 Diagnostic Radiology LEFT UPPER EXTREMITY ULTRASOUND CLINICAL HISTORY: Left upper arm bruising near A-port. COMPARISON STUDY: Chest radiograph January 18, 2017 and PET/CT November 18, 2016. FINDINGS: Note is made of a complex hypoechoic fluid collection without color flow within the left chest wall lateral to the left internal jugular [id number]. The collection has 2 components, one component within the superficial soft tissues and one within the deeper soft tissues. These 2 components appear to communicate. In total, the collection measures 8.8 x 4.8 cm in size. No additional fluid collections are identified. The left internal jugular vein is patent. IMPRESSION: Complex left chest wall/upper extremity fluid collection located lateral to the internal jugular [id number]. The collection has two components which communicate, one component within the superficial soft tissues and one within the deeper soft tissues. In total, collection measures 8.8 x 4.8 cm. The appearance suggests a hematoma. Electronically signed by: Daiz Call M.D. 02/09/2017 7:10 AM Impression Assessment and Plan left chest/shoulder hematoma, enlarging Hematoma has increased and hemoglobin has dropped from 12.6 to 10.2 in 2 days. Will plan for evacuation of hematoma and wound exploration this afternoon by Dr. Marinelli. She has been NPO since 6 PM yesterday. Will give her morning doses of amiodarone and metoprolol. Her Xarelto has been held for 2 days.
[2017-02-09] MEDS ORDERED: CEFAZOLIN IV 2,000 MG/60 ML D5W IV SCH (09:15)
[2017-02-09] MEDS ORDERED: METOPROLOL TARTRATE 50 MG TAB PO ONE (09:15)
[2017-02-09] MEDS ORDERED: AMIODARONE 200 MG TAB PO ONE (09:15)
--- NOTE | 2017-02-09 09:26 | History and Physical ---
History & Physical Date Feb 09, 2017. (Nancy Morales, SHAGUFTA) Chief Complaint Increased swelling and bruising of left chest wall. Patient is 22 days s/p port placement by Dr. Mcgraw, General Surgery. (Nancy Morales PA-C) History of Present Illness The patient is a 76 year old female with past medical history significant for a fib s/p ablation (08/2016), on daily Xarelto, presents with complaints of increased chest wall swelling and bruising x 2 days. Patient had port placed on 01/18/[address] Mcgraw prior to starting chemotherapy for metastatic breast cancer. Since port placement, patient has had two treatments of chemotherapy without complication. She states that she work up early Wednesday morning and noticed that her chest wall had severe bruising. She reports that the bruising continued to become worse. She applied ice to the area without improvement. She marked the area of bruising with a marker. She presented to ED for evaluation. CXR was conducted which showed: There has been no change in the position of the left-sided A-Port catheter. The tip projects just superior to the atriocaval junction. The heartis normal in size. There is no failure. There is no focal pulmonary consolidation. There are no pleural effusions. There is minimal left basilar atelectasis. There is no pneumothorax. Postsurgical changes involve the proximal left humerus. There is stable elevation/eventration of the right hemidiaphragm. IMPRESSION: No active disease in the chest. Patient was discharged. She was instructed to hold Xarelto for 3 days. She followed up in the office with myself yesterday. No signs of infection noted on physical exam. Patient denied recent injury. The bruising had not expanded beyond pt's markings. Patient reports that she woke up early this AM to increased bruising and swelling. Reported to ED. (Nancy Morales PA-C) Past Medical/Surgical History Medical Problems: (1) Chest pain (2) Paroxysmal a-fib (3) Rapid atrial fibrillation (4) Type 2 diabetes mellitus (Nancy Morales, SHAGUFTA) Allergies Coded Allergies: Celecoxib (Verified Allergy, Intermediate, bruises, 01/18/17) Diltiazem (Verified Allergy, Intermediate, hives rash, 01/18/17) Pt states Cardizem IV allergy Naproxen (Verified Allergy, Intermediate, hives, rash, 01/18/17) Statins (Unverified Allergy, Unknown, SEVERE MUSCLE WEAKNESS, 01/18/17) Adhesives (Verified Adverse Reaction, Intermediate, SKIN TEARS, 02/07/17) Home Medications Scheduled Amiodarone Hcl (Pacerone), 200 MG PO QAM Anastrozole (Arimidex), 1 MG PO QPM Calcium/Vitamin D (Os-Lino 500 Plus D), 1 TAB PO BID Cholecalciferol (Vitamin D), 2,000 INTER.UNIT PO QAM Fenofibrate (Tricor ), 145 MG PO QPM Magnesium Oxide (Mag-Ox), 500 MG PO QPM Metoprolol Tartrate (Lopressor) (Lopressor), 50 MG PO QPM Multivitamin (Multivitamin), 1 TAB PO QAM Paclitaxel Protein-Bound (Abraxane), 1 DOSE IV WEEKLY Potassium Chloride (K-Tab), 20 MEQ PO TID Rivaroxaban (Xarelto), 20 MG PO QPM Triamterene/Hctz (Dyazide 37.5MG/25MG), 1 CAP PO QAM Physical Examination Skin: no rash Head: normocephalic, atraumatic Respiratory/Chest: no respiratory distress, + pertinent finding (patient has severe brusing on left chest well that radiates to left breast and to left axillary region. ) Abdomen / GI: non tender (Nancy Morales, PA-C) Plan of Treatment Hematoma. Dr. Marinelli was in to see and examine patient. Will plan for evacuation of hematoma today in main OR. Patient has not had Xarelto for 2 days. (Nancy Morales, PA-C) evacuation hematoma ant chest wall near port site (Jaison Marinelli M.D.)
[2017-02-09 10:22] VITALS: O2SAT 98
[2017-02-09] MEDS ORDERED: ATROPINE SULFATE 0.1 MG/ML 5ML SYR IV PRN (10:30)
[2017-02-09] MEDS ORDERED: MEPERIDINE HCL 25 MG/ML CARP IV PRN (10:30)
[2017-02-09] MEDS ORDERED: FLUMAZENIL 0.1 MG/1 ML 10 ML VIAL IV PRN (10:30)
[2017-02-09] MEDS ORDERED: PHENYLEPHRINE 100MCG/ML 5ML SYR IV PRN (10:30)
[2017-02-09] MEDS ORDERED: LABETALOL HCL IV 5 MG/ML 20ML IV PRN (10:30)
[2017-02-09] MEDS ORDERED: NALOXONE HCL 0.4 MG/1 ML VIAL/CARP IV PRN (10:30)
[2017-02-09] MEDS ORDERED: ONDANSETRON INJ 2 MG/ML 2 ML VIAL IV PRN ×2 (10:30→12:15)
[2017-02-09] MEDS ORDERED: HYDROmorphone INJ 2 MG/ML SYR/VIAL IV PRN (10:30)
[2017-02-09] MEDS ORDERED: EpHEDrine SULFATE INJ 50 MG/ML AMP IV PRN (10:30)
--- NOTE | 2017-02-09 11:04 | History & Physical Bridge Note ---
H&P Re-Evaluation Bridge Note: I have examined the patient, reviewed the History & Physical and in the interval since the performance of the History & Physical I have noted the following changes of clinical significance: No changes notedleft ant chest area marked for evacuation hematoma at bedside
[2017-02-09] MEDS ORDERED: DEXAMETHASONE SOD INJ 4 MG/ML VIAL ONE (11:07)
[2017-02-09] MEDS ORDERED: PROPOFOL IV EMULSION 10 MG/ML 20 ML VIAL IV ONE (11:07)
[2017-02-09] MEDS ORDERED: MIDAZOLAM HCL 1 MG/ML 2ML VIAL ONE (11:07)
[2017-02-09] MEDS ORDERED: LIDOCAINE HCL 2% 2 ML VIAL (20MG/ML) ONE (11:07)
[2017-02-09] MEDS ORDERED: ONDANSETRON INJ 2 MG/ML 2 ML VIAL ONE (11:07)
[2017-02-09] MEDS ORDERED: FENTANYL CITRATE INJ 50 MCG/1 ML 2 ML VIAL ONE (11:07)
[2017-02-09] MEDS ORDERED: LIDOCAINE HCL 1% 20 ML VIAL ONE (11:22)
[2017-02-09] MEDS ORDERED: KETAMINE HCL INJ 50 MG/ML 10 ML VIAL ONE (11:35)
[2017-02-09] MEDS ORDERED: WATER, STERILE FOR INJ 10 ML VIAL ONE (11:59)
[2017-02-09] MEDS ORDERED: SURGICEL ABSORB HEMOSTAT 2IN X 14IN TOP ONE (12:00)
[2017-02-09] MEDS ORDERED: HYDR-5688 PO ×2 (12:03)
--- NOTE | 2017-02-09 12:07 | Discharge Instructions ---
Discharge Instructions Date of Service Feb 09, 2017. Visit Reason for Visit: Bleeding Internall At Site Of Port Discharge Discharge Diagnosis / Problem: evacuation of hematoma Discharge Goals Goal(s): Decrease discomfort Activity Recommendations Activity Limitations: as noted below Lifting Limitations: no more than 5 pounds (left hand) Shower/Bathe: tomorrow Anesthesia . Post Anesthesia Instructions: If you have had General Anesthesia or IV Sedation: * Do not drive today. * Resume driving when surgeon permits. * Do not make important decisions or sign legal documents today. * Call surgeon for: 1. Temperature elevations greater than 101 degrees F. 2. Uncontrollable pain. 3. Excessive bleeding. 4. Persistent nausea and vomiting. 5. Medication intolerance (nausea, vomiting or rash). * For nausea and vomiting use only clear liquids such as: tea, soda, bouillon until nausea subsides, then gradually increase diet as tolerated. * If you have any concerns or questions, call your surgeon's office. If physician is unavailable and it is an emergency, call 911 or go to the nearest emergency room. . Instructions / Follow-Up Instructions / Follow-Up Dr. Mcgraw/[facility] office in 1 week, [phone] OK to have chemo when able to reschedule Hold Xarelto until Wednesday or as otherwise directed by your mobility manager Diet Recommendations Recommended Home Diet: no limitations Procedures Procedures Performed: Evacuation Left Anterior Chest Wall Hematoma Pending Studies Studies pending at discharge: no Medical Emergencies . Who to Call and When: Medical Emergencies: If at any time you feel your situation is an emergency, please call 911 immediately. . Non-Emergent Contact Non-Emergency issues call your: Founder President And Ceo, Surgeon Call Non-Emergent contact if: you have a fever, temperature is above 101.5, your pain is worsening, wound has increased redness, wound has increased pain, you have any medication questions . . "Provider Documentation" section prepared by Horacio Mane. . [place] Drug Monitoring Program Search Results: no issues identified
[2017-02-09] MEDS ORDERED: MoRPHine SULFATE 2 MG/ML CARP IV PRN (12:15)
[2017-02-09] MEDS ORDERED: HYDROCODONE/ACETAMOPHEN 5/325MG TAB PO PRN (12:15)
[2017-02-09] MEDS ORDERED: EpHEDrine SULFATE INJ 50 MG/ML AMP ONE (12:24)
[2017-02-09] MEDS ORDERED: SODIUM CHLORIDE 0.9% INJ 10 ML VIAL ONE (12:24)
--- NOTE | 2017-02-09 12:27 | [facility] Operative Report ---
Operative Report Operative Date Feb 09, 2017. Pre-Operative Diagnosis Left Chest Wall Hematoma s/p a port placement arlen 3 weeks ago Post-Operative Diagnosis same Left Chest Wall Hematoma Procedure(s) Performed Evacuation Left Anterior Chest Wall Hematoma Surgeon Dr. Jaison Marinelli Grain Trimmer Surgeon(s) None Estimated Blood Loss 3ml Findings cloth inferior to cath and extending down deltopectoral groove, no active bleeding few areas of oozing Specimens none per surgeon Indications expanding hematoma last few days Description of Procedure or summary dictated confirmation number [id number] I attest to the content of the Intraoperative Record and any orders documented therein. Any exceptions are noted below.
[2017-02-09] MEDS: FENTANYL CITRATE INJ 50 MCG/1 ML 2 ML VIAL IV PRN ×3 (12:33→12:52)
--- NOTE | 2017-02-09 12:33 | Anesthesiology Progress Note ---
Anesthesia Post Op Note Date & Time Feb 09, 2017 at 12:33 Vital Signs Pain Intensity: 0 Vital Signs Past 12 Hours Date Time Temp Pulse Resp B/P (MAP) Pulse Ox O2 Delivery O2 Flow Rate FiO2 02/09/17 10:22 76 18 118/61 98 Room Air 02/09/17 08:51 81 18 91/48 96 Room Air 02/09/17 06:43 78 16 115/61 98 Room Air 02/09/17 05:25 80 16 108/54 97 Room Air 02/09/17 03:27 80 16 109/64 97 Room Air 02/09/17 00:59 36.8 103 16 114/60 95 Room Air Notes Mental Status: alert / awake / arousable, participated in evaluation Pt Amnestic to Procedure: Yes Nausea / Vomiting: adequately controlled Pain: adequately controlled Airway Patency, RR, SpO2: stable & adequate BP & HR: stable & adequate Hydration State: stable & adequate Anesthetic Complications: no major complications apparent
[2017-02-09 13:12] VITALS: BP 120/59; PULSE 60; TEMP 36.8; O2SAT 100
[2017-02-09 13:40] VITALS: BP 118/56; PULSE 70; TEMP 36.9; O2SAT 99
--- NOTE | 2017-02-09 13:59 | OPERATIVE REPORT ---
DATE OF OPERATION: 02/09/2017 PREOPERATIVE DIAGNOSIS: Expanding hematoma left anterior chest wall. POSTOPERATIVE DIAGNOSIS: Same with a few areas of oozing and no active bleeding. PROCEDURE: Evacuation of hematoma. SURGEON: Dr. Marinelli. OPERATION AND FINDINGS: SUMMARY: This is a 76-year-old female who underwent a left MRI compatible port in the left chest area on 01/18/2017. At that time the patient had significant limitation of her left shoulder area due previous surgery, 4 attempts to access the subclavian vein were unsuccessful, dissection down to the cephalic was unsuccessful, therefore we finally placed along the internal jugular area and internal. The patient as stated was on the recovering uneventfully, actually Xarelto had been held prior to her procedure and on the the patient underwent her first chemotherapy without any problem. She was restarted on Xarelto. She continued with that and then on the she had a second course of therapy without any problem and then approximately the to the she noticed some ecchymosis along the chest wall going down towards around her breast, was seen in the Emergency Room on approximately the where she was asked to stop the Xarelto and her hemoglobin at that time was approximately 12. She was then seen and followed up with oncology where hemoglobin had dropped to about 10.5. She came back to the Emergency Room this morning and her hemoglobin further dropped to about 10.2 and we at this time found that the patient has had what appears to be a hematoma extending from the chest wall all the way down to the lower back but most pronounced in the area of most fluctuance to be right around the port site. With that we took her to surgery where some IV sedation was given. The left chest and neck was prepped with Betadine solution and properly draped. We used 1% Xylocaine without epinephrine to infiltrate along the incision where the A-port had been placed. The actual hematoma appeared to be away from the port site, we could still palpate the port through the skin. An incision was made, deepened through subcutaneous tissue where some expected infiltration of the fat was encountered from the recent surgery. We removed the old sutures and found the hematoma. The first thing we a saw when we entered the hematoma cavity was the catheter which was basically pushed anteriorly by this large amount of clot that we evacuated circumferentially. We could see the catheter going into subcutaneous tissue where the reservoir was and there was no evidence of any splaying of any tissue and that tissue seemed to be incorporated indicating that most of the bleeding was possibly not coming from the deltopectoral groove area. We irrigated the area and then I suctioned out the deltopectoral groove area and identified one small arterial bleed when we suctioned that out. It seemed to be an intramuscular type branch that were controlled with hemostats and right angle and then ligated with suture ligature of 3-0 silk. This was the only area that was actively bleeding after we had maneuvered it. There was no other area of active bleeding except maybe oozers in the just inflamed subcutaneous tissue. We waited a while and paid close attention to this area, making sure there was no other accumulation of fluid or blood. I did place some Surgicel down the deltopectoral groove area and then closed the wound in multiple layers 3-0 and 2-0 Dexon and 4-0 Monocryl and Steri-Strips applied. The procedure was tolerated well by the patient and was taken to recovery room in good condition. Minimal blood loss from my part, whatever was done was from the evacuation of the hematoma. I attest to the content of the Intraoperative Record and any orders documented therein. Any exception s are noted below.
== END 2017-02-09 10:32 | disposition still patient (30) ==
LOC: C.EDB 00:53
DX: S20.212A Contusion of left front wall of thorax, initial encounter (principal); T82.9XXA Unspecified complication of cardiac and vascular prosthetic device, implant and graft, initial encounter; S40.022A Contusion of left upper arm, initial encounter; X58.XXXA Exposure to other specified factors, initial encounter; I48.0 Paroxysmal atrial fibrillation; E11.9 Type 2 diabetes mellitus without complications; C50.919 Malignant neoplasm of unspecified site of unspecified female breast; Z87.891 Personal history of nicotine dependence; Z83.3 Family history of diabetes mellitus; Z82.49 Family history of ischemic heart disease and other diseases of the circulatory system

== ENCOUNTER → 2017-03-23 | Outpatient (CLI) | payer BC ==
[~2017-03-23] MED LIST changes: -RIVA1TAB4 PO
[2017-03-23 09:02] LABS: ESTIMATED AVERAGE GLUCOSE 105 mg/dl; HA1C FLAG Normal (Normal)
[2017-03-23 09:20] LABS: CHOLESTEROL/HDL RATIO 2.6
== END | disposition home or self-care (01) ==
LOC: C.LABSPEC 10:58
PROVIDERS: ATTEND Family Medicine
DX: I10 Essential (primary) hypertension (principal); E78.5 Hyperlipidemia, unspecified; R73.9 Hyperglycemia, unspecified; E87.6 Hypokalemia; C77.0 Secondary and unspecified malignant neoplasm of lymph nodes of head, face and neck

== ENCOUNTER → 2017-03-30 | Outpatient (CLI) | payer BC ==
[2017-03-30 12:45] LABS: URINE APPEARANCE CLOUDY (CLEAR); URINE BILIRUBIN NEG (NEG); URINE COLOR DK YELLOW; URINE EPITHELIAL CELL AUTO 0-5 /lpf (0-5); URINE NITRITE NEG (NEG); URINE SPECIFIC GRAVITY 1.028 (1.000-1.030); UROBILINOGEN NEG (NEG); ZZUR CULT IF INDIC CLEAN CATCH YES
[2017-03-30 12:53] LABS: MANUAL MICROSCOPIC REQUIRED? NO; REVIEW REQ? NO
== END | disposition home or self-care (01) ==
LOC: C.LAB 11:11
PROVIDERS: ATTEND Family Medicine
DX: R30.0 Dysuria (principal)

== ENCOUNTER → 2017-04-27 | Outpatient (CLI) | payer BC ==
[~2017-04-27] MED LIST changes: +GADAVIST IV PRN
--- NOTE | 2017-04-28 13:41 | MAMMOGRAPHY REPORT ---
BREAST MRI OF BOTH BREASTS : 04/27/2017 CLINICAL HISTORY: 76-year-old woman with a personal history of right breast cancer status post breast conservation therapy, and dense breasts. She presents for additional surveillance. Patient reporte d a mildly FDG avid right axillary lymph node seen on prior PET/CT. COMPARISON: Comparison is made to exams dated: 11/13/2016 mammogram, 11/15/2015 mammogram, 04/08/2015 m ammogram, 10/03/2014 mammogram, 10/03/2014 ultrasound, and 09/27/2014 mammogram - [facility] prior outside breast MRIs dated 05/07/2015, 04/12/2014, 02/02/2007. TECHNIQUE: Using a 1.5 Cara magnet and dedicated breast coil, multisequence axial images were obtain ed through the breasts. After uneventful IV administration of 6.6 mL of Gadavist, dynamic multiphase contrast-enhanced axial images, and sagittal postcontrast were obtained. Temporal subtraction axial images and 3-D MIP images are provided. Everything was then reviewed on a 3-D workstation, [employer]. FINDINGS: There is no significant background parenchymal enhancement. There is asymmetry of the size of the breasts, left greater than right. There is expected architectural distortion in the upper out er posterior right breast, with mild diffuse T2 hyperintense signal throughout the right breast inclu ding the skin, likely secondary to prior treatment. There is no evidence of a new suspicious enhanci ng mass, non-mass enhancement or suspicious kinetics in the right breast. No suspicious right axilla ry, subpectoral or intramammary lymphadenopathy is currently identified. The mildly FDG avid lymph n ode seen in the right axilla on prior PET/CT dated 11/18/2016 is not currently identified. There is no evidence of a suspicious enhancing mass, non-mass enhancement or suspicious kinetics in t he left breast. No focal skin thickening or nipple retraction. No suspicious left axillary, subpect oral or internal mammary lymphadenopathy. IMPRESSION: ACR BI-RADS CATEGORY 2: BENIGN Expected post treatment changes in the right breast. No MRI evidence of malignancy within either janice ast. No suspicious axillary, subpectoral or intramammary lymphadenopathy bilaterally. Continuation of annual screening mammograms and MRI is recommended. The patient will receive written notification of the results. Nona Guillen M.D. ay/:04/27/2017 18:19:34 Project Control Manager: medical scientific liaison, [facility] letter sent: Normal 1/2 BI-RADS Code: ACR BI-RADS Category 2: Benign
== END | disposition home or self-care (01) ==
LOC: C.MRI 09:12
PROVIDERS: ATTEND Surgery
DX: Z85.3 Personal history of malignant neoplasm of breast (principal); Z80.3 Family history of malignant neoplasm of breast

== ENCOUNTER → 2017-07-05 | Outpatient (CLI) | payer BC ==
[~2017-07-05] MED LIST changes: -GADAVIST IV PRN
--- NOTE | 2017-07-05 12:32 | DIAGNOSTIC IMAGING REPORT ---
CHEST 2 VIEWS ROUTINE CLINICAL HISTORY: Shortness of breath Cough COMPARISON STUDY: 02/07/2017 FINDINGS: The cardiac images so contours remain stable. A left-sided A-Port catheter is again visualized. There is mild elevation/eventration of the anterior aspect of the right hemidiaphragm. There is no failure. There is no lobar consolidation. There is scattered subtle bilateral groundglass opacities. There is ill-definition of the lower left heart border and left hemidiaphragm. This likely represents a focal airspace opacity. IMPRESSION: Interval development of subtle bilateral groundglass pulmonary opacities. The findings likely represent either a bilateral pneumonitis, or posttreatment cytotoxic lung injury. Clinical and radiographic follow-up is recommended. Electronically signed by: Dayo Bolivar M.D. 07/05/2017 12:30 PM Dictated Date/Time: 07/05/2017 12:26 PM
== END | disposition home or self-care (01) ==
LOC: C.RADPV 12:06
PROVIDERS: ATTEND Family Medicine
DX: R05 Cough (principal); R06.02 Shortness of breath

== ENCOUNTER → 2017-07-05 | Outpatient (CLI) | payer BC ==
--- NOTE | 2017-07-05 10:56 | DIAGNOSTIC IMAGING REPORT ---
PET/CT SKULL-THIGH CLINICAL HISTORY: C50.911 metastatic breast carcinoma COMPARISON STUDY: 11/18/2016 FINDINGS: The patient was injected with 13.1 mCi of F 18 labeled FDG. Following the standard induction phase, PET/CT scanning is performed from the skull base to the upper thigh region. Activity with thin the neck is felt to be physiologic. Within the chest, there is moderately extensive bilateral parenchymal activity fusing to bilateral groundglass and nodular opacities. In the right upper lobe there is a 1 cm nodule with SUV maximum of 3.6. Within the left upper lobe, there is air ground glass consolidation with an SUV maximum of 4.9. This appearance is not typical for neoplasm. The findings most likely represent either a bilateral pneumonia, or treatment related cytotoxic lung injury. There is a minimally FDG avid 13 mm precarinal lymph node, with SUV maximum of 2.3. The previously identified FDG avid right hilar lymph node is no longer FDG avid. The previously identified FDG avid right axillary lymph node is no longer FDG avid. Within the abdomen and pelvis there is physiologic urinary tract and bowel activity. There is no pathologic hepatic or splenic activity. There is no pathologic adrenal gland activity. There is no pathologic venkat activity within the abdomen or pelvis. There are multiple bilateral renal cysts. There is mild dilatation of the right renal pelvis. There are old bilateral ischio pubic ring fractures. There are no FDG avid bone lesions. IMPRESSION: 1. Interval development of multifocal parenchymal lung activity demonstrating SUV maximum is of up to 4.9. The distribution favors a bilateral pneumonia, or posttreatment cytotoxic lung injury. Clinical and imaging follow-up is recommended. 2. The previously identified FDG avid right hilar lymph node and FDG avid right axillary lymph node, are no longer FDG avid Electronically signed by: Dayo Bolivar M.D. 07/05/2017 10:54 AM Dictated Date/Time: 07/05/2017 10:40 AM
== END | disposition home or self-care (01) ==
LOC: C.PET 08:18
PROVIDERS: ATTEND Internal Medicine Hematology & Oncology
DX: C50.911 Malignant neoplasm of unspecified site of right female breast (principal)

== ENCOUNTER → 2017-07-10 | Outpatient (CLI) | payer BC ==
[2017-07-10 09:17] LABS: BASO % 0.3 %; BASO ABS # 0.02 K/uL (0-0.2); COMPLETE YES; EOS % 0.3 %; HEMATOCRIT 39.4 % (37-47); IG% 2.5 %; LYMPH % 19.2 %; LYMPH ABS # 1.38 K/uL (1.2-3.4); MEAN CELL VOLUME 86.6 fL (80-100); MEAN CORPUSCULAR HEMOGLOBIN 28.8 pg (25-34); MEAN CORPUSCULAR HGB CONC 33.2 g/dl (32-36); MEAN PLATELET VOLUME 9.3 fL (7.4-10.4); MONO % 12.3 %; NEUT % 65.4 %; PLATELET COUNT 317 K/uL (130-400); RED BLOOD COUNT 4.55 M/uL (4.2-5.4); WHITE BLOOD COUNT 7.17 K/uL (4.8-10.8)
== END | disposition home or self-care (01) ==
LOC: C.LAB 08:56
PROVIDERS: ATTEND Internal Medicine Pulmonary Disease
DX: R91.8 Other nonspecific abnormal finding of lung field (principal)

== ENCOUNTER → 2017-07-21 | Outpatient (CLI) | payer BC ==
[~2017-07-21] MED LIST changes: -ANAS1TAB19 PO; +ANAS1TAB59 PO; +GABA-1693 PO; +MAGN500T4 PO; +RIVA1TAB4 PO
--- NOTE | 2017-07-21 08:06 | DIAGNOSTIC IMAGING REPORT ---
CHEST 2 VIEWS ROUTINE CLINICAL HISTORY: R91.8 Lung infiltrate on [id number] COMPARISON STUDY: 07/05/2017 FINDINGS: Improved exam. Baseline emphysematous and atelectatic change left base. There is a described infiltrative changes have resolved. IMPRESSION: No acute process. Lungs are now considered clear. Chronic emphysematous changes as noted The above report was generated using voice recognition software. It may contain grammatical, syntax or spelling errors. Electronically signed by: David Argueta M.D. 07/21/2017 8:05 AM Dictated Date/Time: 07/21/2017 8:04 AM
== END | disposition home or self-care (01) ==
LOC: C.RAD 07:46
PROVIDERS: ATTEND Internal Medicine Pulmonary Disease
DX: R91.8 Other nonspecific abnormal finding of lung field (principal)

== ENCOUNTER → 2017-07-23 | Outpatient (CLI) | payer BC ==
[~2017-07-23] MED LIST changes: +ANAS1TAB19 PO; -ANAS1TAB59 PO; -GABA-1693 PO; -MAGN500T4 PO; -RIVA1TAB4 PO
== END | disposition home or self-care (01) ==
LOC: C.LABPVFM 17:50
PROVIDERS: ATTEND Family Medicine
DX: N39.0 Urinary tract infection, site not specified (principal)

== ENCOUNTER → 2017-08-03 | Outpatient (CLI) | payer BC | END | disposition home or self-care (01) | LOC: C.LABPVFM 07:56 | PROVIDERS: ATTEND Family Medicine | DX: I48.0 Paroxysmal atrial fibrillation (principal) ==

== ENCOUNTER → 2017-09-02 | Outpatient (CLI) | payer BC ==
[~2017-09-02] MED LIST changes: -HYDR-5688 PO
== END | disposition home or self-care (01) ==
LOC: C.LABPVFM 12:35
PROVIDERS: ATTEND Family Medicine
DX: R60.9 Edema, unspecified (principal)

== ENCOUNTER → 2017-09-09 | Outpatient (CLI) | payer BC | END | disposition home or self-care (01) | LOC: C.LABPVFM 12:30 | PROVIDERS: ATTEND Urology | DX: N39.0 Urinary tract infection, site not specified (principal) ==

== ENCOUNTER → 2017-10-21 | Outpatient (CLI) | payer BC ==
[~2017-10-21] MED LIST changes: +OPTIRAY 320 IV PRN
--- NOTE | 2017-10-21 15:28 | DIAGNOSTIC IMAGING REPORT ---
CHEST CT WITH CONTRAST CT DOSE: 240.51 mGycm HISTORY: BREAST CA W/METS TO LYMPH NODES TECHNIQUE: Multiaxial CT images of the chest were performed following the intravenous administration of contrast. A dose lowering technique was utilized adhering to the principles of ALARA. COMPARISON: PET CT 07/05/2017. FINDINGS: The central airways are patent. No pleural effusions. No pneumothorax. Stable 4 mm nodular density within the right upper lobe on image 67. Bilateral patchy airspace opacity seen on the prior study have since resolved. There are few scattered linear densities remaining suggesting scarring. Groundglass nodule within the right upper lobe on image 76 measures 1.1 cm. This demonstrates decreased density compared the prior study. Therefore, this also favors a resolving pneumonitis. No new pulmonary nodules identified. No suspicious lytic or blastic osseous lesions. Postoperative changes within the left humerus are again noted. Left subclavian Port-A-Cath terminates at the SVC. Limited views of the upper abdomen demonstrate stable subcentimeter hypodense lesions within the liver. These are too small to characterize but favor cysts. Dominant lesion within the caudate lobe measures 7 mm. The visualized spleen and left adrenal gland are unremarkable. Stable 9 mm right adrenal gland nodule. Normal caliber thoracic aorta. The central pulmonary arteries are patent. Postoperative changes within the right breast. No mediastinal or hilar lymphadenopathy. Increase in size in the ill-defined soft tissue nodule within the right axilla which measures 1.3 x 0.8 cm. This is concerning for metastatic disease. This corresponds to the FDG avid lesion on the 11/18/2016 PET/CT. No left axillary lymphadenopathy. IMPRESSION: 1. Increase in size in the 1.3 x 0.8 cm ill-defined soft tissue nodule/lymph node within the right axilla. Therefore, this likely represents metastatic disease. 2. The patchy airspace opacity seen on the prior CT has essentially resolved in the interval. 3. There is a 1.1 cm groundglass nodular density remaining within the right upper lobe. This also likely represents a resolving pneumonitis. Additional [address] follow up is recommended to ensure complete resolution. 4. Stable 4 mm nodular density within the right lung apex. Electronically signed by: Kehinde Dudley M.D. 10/21/2017 3:27 PM Dictated Date/Time: 10/21/2017 3:13 PM
== END | disposition home or self-care (01) ==
LOC: C.CTS 14:18
PROVIDERS: ATTEND Internal Medicine Hematology & Oncology
DX: C77.0 Secondary and unspecified malignant neoplasm of lymph nodes of head, face and neck (principal); Z85.3 Personal history of malignant neoplasm of breast; J98.4 Other disorders of lung

== ENCOUNTER → 2017-11-15 | Outpatient (CLI) | payer BC ==
[~2017-11-15] MED LIST changes: -OPTIRAY 320 IV PRN
--- NOTE | 2017-11-16 12:47 | MAMMOGRAPHY REPORT ---
BILATERAL DIGITAL SCREENING MAMMOGRAM TOMOSYNTHESIS WITH CAD: 11/15/2017 CLINICAL HISTORY: Routine screening. Patient has no complaints. Asymmetry. TECHNIQUE: Breast tomosynthesis in addition to standard 2D mammography was performed. Current study was also evaluated with a Computer Aided Detection (CAD) system. COMPARISON: Comparison is made to exams dated: 11/13/2016 mammogram, 11/15/2015 mammogram, 04/08/2015 m ammogram, 10/03/2014 mammogram, 10/03/2014 ultrasound, and 09/27/2014 mammogram - [facility]. BREAST COMPOSITION: The tissue of both breasts is heterogeneously dense, which may obscure small mas ses. FINDINGS: The exam is slightly suboptimal due to inability of the patient to adequately position. Wi thin this limitation, the glandular pattern is similar to prior mammograms. There is evidence of crystal or bilateral breast surgery. There are mild to moderate vascular calcifications and numerous bilater al benign coarse calcifications. No new suspicious mass, architectural distortion or cluster of micr ocalcifications is seen. IMPRESSION: ACR BI-RADS CATEGORY 1: NEGATIVE There is no mammographic evidence of malignancy. A 1 year screening mammogram is recommended. The pa tient will receive written notification of the results. Approximately 10% of breast cancers are not detected with mammography. A negative mammographic report should not delay biopsy if a clinically suggestive mass is present. Nona Guillen M.D. ay/:11/15/2017 14:59:33 Cement Sprayer Helper: Maren Luna RT(R)(M), [facility] letter sent: Normal 1/2 BI-RADS Code: ACR BI-RADS Category 1: Negative
== END | disposition home or self-care (01) ==
LOC: C.MAMM 13:59
PROVIDERS: ATTEND Surgery
DX: Z12.31 Encounter for screening mammogram for malignant neoplasm of breast (principal); Z85.3 Personal history of malignant neoplasm of breast

== ENCOUNTER → 2018-02-02 | Outpatient (CLI) | payer BC ==
[~2018-02-02] MED LIST changes: -ABRI IV; -AMIO200T7 PO; -ANAS1TAB19 PO; +ANAS1TAB59 PO; +GABA-1693 PO; -MAGN400T6 PO; +MAGN500T4 PO; -METO50TA16 PO; +RIVA1TAB4 PO
--- NOTE | 2018-02-02 11:40 | DIAGNOSTIC IMAGING REPORT ---
PET/CT SKULL-THIGH CLINICAL HISTORY: 77 years-old Female with BREAST CANCER. Subsequent treatment strategy in a patient with history of metastatic breast cancer. Last radiation completed June 2017. Last radiation therapy completed 2004. History of breast lumpectomy. COMPARISON: PET/CT 07/05/2017, chest CT 10/21/2017. TECHNIQUE: The patient was injected with 14.0 mCi of F-18 fluorodeoxyglucose (FDG) and an emission scan was performed from the skull vertex to the toes. Noncontrast CT was performed for attenuation correction and anatomic localization. The blood glucose level was 110 mg/dl. FINDINGS: HEAD AND NECK: There is a physiologic distribution of activity, with no hypermetabolic foci. CHEST: There is a 1.3 x 1.6 cm focus of increased metabolic activity about the right hilum, image 79 of 267 without correlate on the CT images suggesting uptake within pulmonary vasculature or possibly in an occult right hilar lymph node. There is a cluster of solid nodules within the basal right lower lobe measuring up to 6 mm with minimally increased metabolic activity, SUV max of 1.6. Background lung SUV max is 0.7. These are likely on an infectious or inflammatory basis and appear unchanged. Unchanged 11 mm groundglass nodule of the right lung apex without hypermetabolic activity. Unchanged 4 mm solid nodule of the right lung apex on image 66 series 2. No new pulmonary nodules identified. Decreased size of mildly prominent nonenlarged right axillary lymph node measuring 1.1 x 0.7 cm on image 72 series 2, previously measuring 1.3 x 0.8 cm on study dated 10/21/2017. No new or progressively enlarged axillary adenopathy. ABDOMEN AND PELVIS: There is a physiologic distribution of activity within the liver, spleen, adrenal glands, gastrointestinal and urinary tracts, with no hypermetabolic foci. MUSCULOSKELETAL SYSTEM AND EXTREMITIES: There is a physiologic distribution of activity within the bone marrow, with no hypermetabolic foci. There is mildly increased tracer activity about the right paraspinal musculature of the midthoracic spine without correlate on the CT images, likely related to recent activity or inflammation. ADDITIONAL CT FINDINGS: Left internal jugular [id number] catheter terminates within the SVC. Heart is mildly enlarged. Coronary arterial disease. Mild fusiform dilation of the ascending thoracic aorta, 4.2 x 4.1 cm. Dependent subsegmental groundglass densities suggest atelectasis. Postsurgical changes about the right breast. Contracted gallbladder. Hypodense lesions about the kidneys suggest renal cysts. Probable cyst of the caudate lobe liver, 5 mm. Small cystocele with prior hysterectomy. Extensive calcification of the abdominal aorta without aneurysm. No bowel obstruction. Colonic diverticulosis without diverticulitis. Normal appendix. Soft tissues are unremarkable. Chronic healed fractures about the pelvis. ORIF changes about the left humerus proximally. IMPRESSION: 1. Slightly decreased size of the previously described right axillary lymph node without hypermetabolic activity identified. 2. 1.6 cm focus of hypermetabolic activity about the right hilum without correlate on the CT images may reflect occult right hilar lymph node or uptake within pulmonary vasculature. Attention at follow-up recommended. 3. No additional hypermetabolic or pathologically enlarged adenopathy or evidence of new metastatic disease. 4. Additional incidental findings as above. The above report was generated using voice recognition software. It may contain grammatical, syntax or spelling errors. Dictated: 02/02/2018 10:41 AM Transcribed: 02/02/2018 11:39 AM [facility] Electronically signed by: Pramod Vail M.D. 02/02/2018 12:04 PM Dictated Date/Time: 02/02/2018 10:41 AM
== END | disposition home or self-care (01) ==
LOC: C.PET 01-31 08:42
PROVIDERS: ATTEND Internal Medicine Hematology
DX: C50.911 Malignant neoplasm of unspecified site of right female breast (principal); C77.3 Secondary and unspecified malignant neoplasm of axilla and upper limb lymph nodes; C77.1 Secondary and unspecified malignant neoplasm of intrathoracic lymph nodes; Z85.3 Personal history of malignant neoplasm of breast

== ENCOUNTER → 2018-02-23 | Outpatient (CLI) | payer BC ==
[2018-02-23 15:43] LABS: BASO % 0.2 %; BASO ABS # 0.01 K/uL (0-0.2); EOS % 1.2 %; EOS ABS # 0.07 K/uL (0-0.5); HEMOGLOBIN 14.2 g/dL (12.0-16.0); IG# 0.01 K/uL (0.00-0.02); LYMPH % 29.3 %; LYMPH ABS # 1.75 K/uL (1.2-3.4); MEAN CELL VOLUME 85.9 fL (80-100); MEAN CORPUSCULAR HGB CONC 33.8 g/dl (32-36); MONO % 5.9 %; MONO ABS # 0.35 K/uL (0.11-0.59); NEUT % 63.2 %; NEUT ABS # 3.78 K/uL (1.4-6.5); PLATELET COUNT 224 K/uL (130-400); RED CELL DISTRIBUTION WIDTH CV 13.9 % (11.5-14.5); RED CELL DISTRIBUTION WIDTH SD 43.1 fL (36.4-46.3); WHITE BLOOD COUNT 5.97 K/uL (4.8-10.8)
[2018-02-23 16:12] LABS: BLOOD UREA NITROGEN 23 mg/dl (7-18); CREATININE 0.98 mg/dl (0.60-1.20); GLUCOSE 135 mg/dl (70-99)
[2018-02-23 16:13] LABS: CALCIUM 8.4 mg/dl (8.5-10.1); CARBON DIOXIDE 27 mmol/L (21-32); POTASSIUM 3.3 mmol/L (3.5-5.1); SODIUM 141 mmol/L (136-145)
== END | disposition home or self-care (01) ==
LOC: C.LAB1850 14:33
PROVIDERS: ATTEND Internal Medicine Cardiovascular Disease
DX: I49.3 Ventricular premature depolarization (principal); Z79.01 Long term (current) use of anticoagulants